=== PATIENT | female | born 1975 | race American Indian/Alaskan Native ===

== ENCOUNTER 2018-07-07 19:51 | Emergency (ER) | payer OTHER ==
[2018-07-07 20:03] VITALS: BP 133/89
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
== END 2018-07-08 03:40 | disposition home or self-care (01) ==
LOC: ED 19:51
DX: N93.8 Other specified abnormal uterine and vaginal bleeding (principal); N76.0 Acute vaginitis; B96.89 Other specified bacterial agents as the cause of diseases classified elsewhere
CPT/HCPCS: 87210; 99283

== ENCOUNTER 2021-03-24 09:56 | Outpatient (CLI) | payer OTHER ==
--- NOTE | 2021-03-24 10:42 | Mammography Report ---
DIGITAL DIAGNOSTIC MAMMOGRAM WITH CAD CONVENTIONAL, 03/24/2021 CLINICAL INFORMATION / INDICATION: Patient presents for evaluation of diffuse right breast pain. Deana ent has history of benign right breast biopsy. MASTODYNIA N64.4 TECHNIQUE: Digital bilateral mammographic imaging was performed. This examination was interpreted with the benefit of Computer-aided Detection analysis. COMPARISON: Prior mammograms 05/05/2020 and 09/08/2019 FINDINGS: Breast Density: The breasts are extremely dense, which lowers the sensitivity of mammography. No dominant mass, suspicious calcifications or architectural distortion in either breast. There is a stable biopsy clip in the 3:00 position of the right breast. Residual calcifications at th e biopsy site are not significantly changed compared with prior examination. There is no evidence for new or increasing microcalcification. IMPRESSION: 1. No suspicious mammographic abnormality identified in either breast. There is no mammographic abnor mality to account for right breast pain, therefore clinical correlation is recommended. Follow up recommendation: Routine yearly BI-RADS Category 2: Benign. A "normal" or negative report should not discourage follow up or biopsy of a clinically significant f inding. A written summary of these findings will be mailed to the patient. The patient will be entered into a mammography reporting system which will generate a reminder letter for the patient's next appointmen t at the appropriate interval. According to the [employer], yearly mammograms are recommended starting at age 40 and continuing as long as a woman is in good health. Breast MRI is recommended for women with an yvette roximately 20-25% or greater lifetime risk of breast cancer, including women with a strong family his tory of breast or ovarian cancer and women who have been treated for Hodgkin's disease. Signer Name: Sammi Noland MD Signed: 03/24/2021 10:38 AM Workstation Name: [email or web address]
== END 2021-03-24 09:57 | disposition home or self-care (01) ==
LOC: SPVWC 09:56
PROVIDERS: ATTEND Surgery
DX: R92.1 Mammographic calcification found on diagnostic imaging of breast (principal)
CPT/HCPCS: 77066